=== PATIENT | male | born 1990 | race Caucasian/White ===

== ENCOUNTER 2021-07-03 02:27 | Emergency (ER) | payer MEDICAID ==
--- NOTE | 2021-07-03 02:48 | EDM.PDOC ---
ED HPI GENERAL MEDICAL PROBLEM - General Stated Complaint: PAIN IN ABDOMIN AROUNG TO BACK Time Seen by Provider: 07/03/21 02:35 Source of Information: Reports: Patient History Limitations: Reports: No Limitations - History of Present Illness INITIAL COMMENTS - FREE TEXT/NARRATIVE: This 31 yo male patient reports to the ED due to having pains in his upper back. The patient reports the pains radiated to his right shoulder and around his lower chest into the front. The patient reports he was sitting in a chair reading news when his symptoms started. The patient reports his symptoms are much better at this time. The patient reports no previous similar symptoms in the past. The patient reports he has had surgery on his right shoulder in the past. The patient denies any additional symptoms at this time. The patient reports he had some difficulties breathing during the time of increased pain. Onset: Today Duration: Minutes:, Improving Location: Reports: Chest (lower anterior chest wall), Back (middle back), Upper Extremity, Right (shoulder) Quality: Reports: Ache, Sharp Severity: Moderate Improves with: Reports: Other Worsens with: Reports: None Associated Symptoms: Reports: Chest Pain, Shortness of Breath Middle Back Pain Score (Numeric/FACES): 1 - Related Data Allergies Allergy/AdvReac Type Severity Reaction Status Date / Time Cephalosporins Allergy Rash Verified 07/03/21 02:45 Penicillins Allergy Rash Verified 07/03/21 02:45 Home Meds: Home Meds . [No Known Home Meds] 01/31/14 [History] ED ROS GENERAL - Review of Systems Review Of Systems: Comprehensive ROS is negative, except as noted in HPI. ED EXAM, GENERAL - Physical Exam Exam: See Below Exam Limited By: No Limitations General Appearance: Alert, WD/WN, Anxious, Moderate Distress Eye Exam: Bilateral Eye: EOMI, Normal Inspection, PERRL Ears: Normal External Exam, Normal Canal, Hearing Grossly Normal, Normal TMs Nose: Normal Inspection, Normal Mucosa, No Blood Throat/Mouth: Normal Inspection, Normal Lips, Normal Teeth, Normal Gums, Normal Oropharynx, Normal Voice, No Airway Compromise Head: Atraumatic, Normocephalic Neck: Normal Inspection, Supple, Non-Tender, Full Range of Motion Respiratory/Chest: No Respiratory Distress, Lungs Clear, Normal Breath Sounds, No Accessory Muscle Use, Chest Non-Tender Cardiovascular: Normal Peripheral Pulses, Regular Rate, Rhythm, No Edema, No Gallop, No JVD, No Murmur, No Rub GI/Abdominal: Normal Bowel Sounds, Soft, Non-Tender, No Organomegaly, No Distention, No Abnormal Bruit, No Mass (Male) Exam: Deferred Rectal (Males) Exam: Deferred Back Exam: Normal Inspection, Full Range of Motion, NT Extremities: Normal Inspection, Normal Range of Motion, Non-Tender, Normal Capillary Refill, No Pedal Edema Neurological: Alert, Oriented, CN II-XII Intact, Normal Cognition, Normal Gait, Normal Reflexes, No Motor/Sensory Deficits Psychiatric: Normal Affect, Normal Mood Skin Exam: Warm, Dry, Intact, Normal Color, No Rash Lymphatic: No Adenopathy #1 Interpretation EKG Date: 07/03/21 Time: 02:53 Rhythm: NSR Rate (Beats/Min): 83 [place]: Normal P-Wave: Present QRS: Normal ST-T: Normal QT: Normal Comparison: NA - No Prior EKG Course - Vital Signs Last Recorded V/S: Last Vital Signs Temp 97.7 F 07/03/21 02:33 Pulse 86 07/03/21 02:33 Resp 18 07/03/21 02:33 BP 158/85 H 07/03/21 02:33 Pulse Ox 97 07/03/21 02:33 - Orders/Labs/Meds Orders: Active Orders 24 hr Category Date Time Status EKG Documentation Completion [RC] STAT Care 07/03/21 02:42 Ordered Chest 1V Frontal [CR] Urgent Exams 07/03/21 02:42 Ordered Labs: Laboratory Tests 07/03/21 07/03/21 Range/Units 02:50 02:50 WBC 7.1 (5.0-10.0) 10^3/uL RBC 4.94 (4.6-6.2) 10^6/uL Hgb 14.2 (14.0-18.0) g/dL Hct 42.0 (40.0-54.0) % MCV 85.0 (80-100) fL MCH 28.7 (27.0-34.0) pg MCHC 33.8 (33.0-35.0) g/dL Plt Count 196 (150-450) 10^3/uL Neut % (Auto) 56.6 (42.2-75.2) % Lymph % (Auto) 35.0 (20.5-50.1) % [place] % (Auto) 5.9 (2-8) % Eos % (Auto) 2.4 (1.0-3.0) % Baso % (Auto) 0.1 (0.0-1.0) % Sodium 142 (136-145) mmol/L Potassium 3.5 (3.5-5.1) mmol/L Chloride 104 (98-107) mmol/L Carbon Dioxide 28 (21-32) mmol/L Anion Gap 13.5 H (7-13) mEq/L BUN 12 (7-18) mg/dL Creatinine 0.97 (0.70-1.30) mg/dL Est Cr Clr Drug Dosing 116.44 mL/min Estimated GFR (MDRD) > 60 BUN/Creatinine Ratio 12.4 (No establ ref range) Glucose 141 H (70-99) mg/dL Calcium 8.5 (8.5-10.1) mg/dL Total Bilirubin 0.3 (0.2-1.0) mg/dL AST 64 H (15-37) U/L ALT 63 (16-63) U/L Alkaline Phosphatase 66 (46-116) U/L Troponin I High Sens 5 (<=76) pg/mL Total Protein 7.4 (6.4-8.2) g/dL Albumin 4.1 (3.4-5.0) g/dL Globulin 3.3 Albumin/Globulin Ratio 1.2 Departure - Departure Time of Disposition: 03:27 Disposition: Home, Self-Care 01 Condition: Fair Clinical Impression: Spasm of thoracic back muscle, Nonspecific chest pain Instructions: Muscle Cramps and Spasms, [id number] Forms: ED Department Discharge Care Plan Goals: The patient and his mother were advised of the examination, lab, x-ray and EKG results during the visit. The patient was encouraged to continue to monitor for any additional symptoms or pain. If the patient has any additional symptoms or further concerns, the patient should either return to the emergency department or visit his primary care facility. Sepsis Event Note (ED) - Focused Exam Vital Signs: Vital Signs Temp Pulse Resp BP Pulse Ox 07/03/21 02:33 97.7 F 86 18 158/85 H 97 - My Orders Last 24 Hours: My Active Orders 07/03/21 02:42 EKG Documentation Completion [RC] STAT Chest 1V Frontal [CR] Urgent - Assessment/Plan Last 24 Hours: My Active Orders 07/03/21 02:42 EKG Documentation Completion [RC] STAT Chest 1V Frontal [CR] Urgent
[2021-07-03 03:21] LABS: ANION GAP 13.5 mEq/L (7-13); CHLORIDE,CL 104 mmol/L (98-107); SODIUM,NA 142 mmol/L (136-145)
--- NOTE | 2021-07-03 03:55 | CR ---
PROCEDURE INFORMATION: Exam: XR Chest Exam date and time: 07/03/2021 2:48 AM Age: 31 years old Clinical indication: Chest wall pain; Additional info: Chest pain TECHNIQUE: Imaging protocol: XR of the chest. Views: 1 view. COMPARISON: No relevant prior studies available. FINDINGS: Lungs: Unremarkable. No consolidation. Pleural spaces: Unremarkable. No pleural effusion. No pneumothorax. Heart/Mediastinum: Unremarkable. No cardiomegaly. Bones/joints: Unremarkable. IMPRESSION: No acute findings.
== END 2021-07-03 03:46 | disposition home or self-care (01) ==
LOC: DL.ED 02:27
DX: R07.89 Other chest pain (principal); M62.838 Other muscle spasm; Z88.0 Allergy status to penicillin; Z88.1 Allergy status to other antibiotic agents
CPT/HCPCS: 36415; 71045; 80053; 84484; 85025; 93005; 93010; 99283; 99285-25

== ENCOUNTER 2022-03-03 16:24 | Emergency (ER) | payer BC, MEDICAID ==
[2022-03-03] MEDS ORDERED: Ondansetron 4 MG Tab.DIS PO ONE (16:25)
[2022-03-03] MEDS ORDERED: Ciprofloxacin 500 MG Tab PO ONE (16:25)
[2022-03-03] MEDS ORDERED: Sodium Chloride 0.9% 10 ML Syringe FLUSH PRN (17:39)
[2022-03-03] MEDS ORDERED: Ondansetron 4 MG/2 ML SDV IV ONE (17:40)
[2022-03-03] MEDS ORDERED: Famotidine 20 MG/2 ML SDV IVPUSH ONE (17:40)
[2022-03-03] MEDS ORDERED: Sodium Chloride 0.9% 1,000 ML IV ONE (17:40)
[2022-03-03 18:20] LABS: ANION GAP 14.2 mEq/L (7-13); CHLORIDE,CL 103 mmol/L (98-107); SODIUM,NA 140 mmol/L (136-145)
[2022-03-03] MEDS ORDERED: Iopamidol 612 MG/ML 100 ML Bottle IVPUSH ONE (18:31)
[2022-03-03] MEDS ORDERED: Ciprofloxacin 500 MG Tab ONE (20:08)
[2022-03-03] MEDS ORDERED: Ondansetron 4 MG Tab.DIS ONE (20:09)
== END 2022-03-03 20:22 | disposition home or self-care (01) ==
LOC: DL.ED 16:24
DX: D72.829 Elevated white blood cell count, unspecified (principal); N20.2 Calculus of kidney with calculus of ureter; L08.9 Local infection of the skin and subcutaneous tissue, unspecified; K21.9 Gastro-esophageal reflux disease without esophagitis; Z88.0 Allergy status to penicillin; Z88.1 Allergy status to other antibiotic agents; Z79.899 Other long term (current) drug therapy
CPT/HCPCS: 36415; 74177; 80053; 81001; 82150; 83605; 83690; 85025; 86140; 96374; 96375; 99284-25; A9270-GY; J2405; J3490; J7030; Q9967